=== PATIENT | female | born 1965 | race Caucasian/White ===

== ENCOUNTER 2018-05-26 09:03 | Outpatient (CLI) | payer OTHER ==
--- NOTE | 2018-05-26 15:10 | MMO ---
BILATERAL MAMMOGRAMS: DATE: 05/26/18 HISTORY: Screening mammography. COMPARISON: Multiple exams back to 07/22/14. FINDINGS: Heterogeneously dense fibroglandular tissue and benign-appearing calcifications. Multiple partially o bscured oval and lobular isodense nodules of varying size throughout each breast are stable and consi stent with a benign process. Metallic markers in the left breast indicate areas of prior biopsy. No d ominant mass or suspicious calcifications. The study was evaluated with the assistance of computer-aided detection. IMPRESSION: BIRADS 2: Benign Finding(s) Suggest routine follow-up. POS: SHANTEL
== END 2018-05-26 09:04 | disposition home or self-care (01) ==
LOC: SCSMAMMO 09:03
PROVIDERS: ATTEND Family Medicine
DX: Z12.31 Encounter for screening mammogram for malignant neoplasm of breast (principal)
CPT/HCPCS: 77067

== ENCOUNTER 2018-06-02 07:57 | Outpatient (CLI) | payer OTHER ==
--- NOTE | 2018-06-02 10:39 | CT ---
CT NECK WITH CONTRAST: 06/02/2018 HISTORY: A 52-year-old female with ICD-10, C02.9, squamous cell carcinoma of the tongue. COMPARISON: None. FINDINGS: There is soft tissue fullness and slightly increased attenuation/enhancement of the right lateral asp ect of the oral tongue. This causes mild mass effect, such that the midline raphe is minimally devia ellie to the left. The base of tongue (lingual tonsil) is enlarged, filling and effacing the entire vallecula, abutting the epiglottis and minimally displacing it posteriorly. The entire lingual tonsil is enlarged, but t he right side is asymmetrically slightly larger than the left. The lingual tonsil measures approxima tely 3.2 x 2 x 1.3 cm. There are nonspecific, mildly enlarged, bilateral level 2 lymph nodes, right greater than left. For example, there is a level 2A node anterior to the right internal jugular vein with dimensions of 1.3 x 0.7 x 2.3 cm. There is a retro-jugular level 2B lymph node, measuring 0.7 x 1 x 1.8 cm. The lymph nodes on the contralateral left side are smaller than these. There are no necrotic lymph n odes. Nonspecific, scattered, few, small nodules in the thyroid gland, bilaterally. Trachea is patent and clear. No evidence of upper mediastinal or supraclavicular lymphadenopathy. Other than the effacement of the vallecula and slight posterior displacement of the epiglottis, the r est of the larynx is normal. The parapharyngeal, perivertebral, parotid, submandibular, carotid, entrepreneurship program director, and posterior cervica l spaces are normal. No destructive osseous lesion is visualized. The internal carotid arteries are medialized, in retropharyngeal locations. IMPRESSION: 1. Enlargement of the lingual tonsil (base of tongue), filling the vallecula and mildly posteriorly displacing the epiglottis. This may represent the squamous cell carcinoma mentioned in the history. 2. Soft tissue fullness in the right lateral aspect of the oral tongue, which could alternatively be the squamous cell carcinoma mentioned in the history. 3. Mildly enlarged right cervical lymph nodes, equivocal. A PET scan would be useful in this regard . POS: SHANTEL
== END 2018-06-02 07:58 | disposition home or self-care (01) ==
LOC: BICCT 07:57
PROVIDERS: ATTEND Family Medicine
DX: C02.9 Malignant neoplasm of tongue, unspecified (principal); J35.1 Hypertrophy of tonsils; R59.0 Localized enlarged lymph nodes; J05.10 Acute epiglottitis without obstruction
CPT/HCPCS: 70491